=== PATIENT | male | born 1960 | race Caucasian/White ===

== ENCOUNTER 2016-11-18 16:06 | Emergency (ER) | payer OTHER ==
[~2016-11-18] VITALS: Ht 182.9 cm; Wt 78.7 kg
[2016-11-18 17:10] VITALS: BP 93/53
== END 2016-11-18 18:47 | disposition home or self-care (01) ==
LOC: EME 16:06
DX: F10.129 Alcohol abuse with intoxication, unspecified (principal); F17.200 Nicotine dependence, unspecified, uncomplicated
CPT/HCPCS: 99281; 99283